=== PATIENT | female | born 1965 | race Caucasian/White ===

== ENCOUNTER → 2017-10-24 | Outpatient (CLI) | payer BC | LOC: MC.RAD 14:30 | DX: Z12.31 Encounter for screening mammogram for malignant neoplasm of breast (principal) ==

== ENCOUNTER → 2018-11-01 | Outpatient (CLI) | payer BC | LOC: MC.RAD 13:35 | DX: Z12.31 Encounter for screening mammogram for malignant neoplasm of breast (principal) ==

== ENCOUNTER → 2019-12-04 | Outpatient (CLI) | payer BC | LOC: MC.RAD 16:24 | DX: Z12.31 Encounter for screening mammogram for malignant neoplasm of breast (principal) ==

== ENCOUNTER → 2020-12-09 | Outpatient (CLI) | payer BC | LOC: MC.RAD 16:37 | DX: Z12.31 Encounter for screening mammogram for malignant neoplasm of breast (principal); N64.9 Disorder of breast, unspecified ==

== ENCOUNTER → 2021-01-04 | Outpatient (CLI) | payer BC | LOC: MC.RAD 09:46 | DX: N60.01 Solitary cyst of right breast (principal); Z98.82 Breast implant status ==

== ENCOUNTER → 2022-03-09 | Outpatient (CLI) | payer BC | LOC: MC.RAD 16:20 | DX: Z12.31 Encounter for screening mammogram for malignant neoplasm of breast (principal) ==

== ENCOUNTER → 2024-03-14 | Outpatient (CLI) | payer BC | LOC: MC.RAD 14:27 | DX: Z12.31 Encounter for screening mammogram for malignant neoplasm of breast (principal) ==